=== PATIENT | female | born 1955 | race African-American/Black ===

== ENCOUNTER 2020-05-26 22:20 | Emergency (ER) | payer MEDICARE, OTHER | END 2020-05-27 04:35 | disposition home or self-care (01) | LOC: FER 22:20 | DX: S83.91XA Sprain of unspecified site of right knee, initial encounter (principal); M25.511 Pain in right shoulder; M54.2 Cervicalgia; I10 Essential (primary) hypertension; E11.9 Type 2 diabetes mellitus without complications; Z79.4 Long term (current) use of insulin; Z79.82 Long term (current) use of aspirin; Z79.899 Other long term (current) drug therapy; Z88.5 Allergy status to narcotic agent; Z91.040 Latex allergy status; W19.XXXA Unspecified fall, initial encounter | CPT/HCPCS: 72125; 73030; 73564; 96372; J1170; J2405 ==

== ENCOUNTER 2020-09-25 15:16 | Emergency (ER) | payer MEDICARE, OTHER ==
[2020-09-25 16:46] LABS: BASOPHIL 0.4 % (0-2); EOSINOPHIL 2.1 % (0-7); HCT 33.6 % (37.0-47.0); HGB 10.6 g/dl (12.5-16.0); LYMPHOCYTE 30.5 % (15-48); MCHC 31.5 g/dL (32.0-36.0); MCV 85.5 fL (78.0-100.0); MONOCYTE 17.5 % (0-12); MPV 11.1 fL (6.0-9.5); NEUTROPHIL 47.2 % (41-80); NRBC 0; PLT 202 K/uL (150-400); RBC 3.93 M/uL (4.20-5.40); RDW 14.8 % (11.5-14.0); WBC 5.6 K/uL (4.0-10.5)
[2020-09-25 17:06] LABS: BUN/CREAT RATIO (CALC) 11.1 RATIO; CREATININE 1.08 mg/dL (0.51-0.95); POTASSIUM 4.5 mmol/L (3.5-5.1)
== END 2020-09-25 17:52 | disposition home or self-care (01) ==
LOC: FER 15:16
PROVIDERS: Nurse Practitioner Family
DX: T81.31XA Disruption of external operation (surgical) wound, not elsewhere classified, initial encounter (principal); E11.9 Type 2 diabetes mellitus without complications; I10 Essential (primary) hypertension; Z88.5 Allergy status to narcotic agent; Z79.84 Long term (current) use of oral hypoglycemic drugs; Z91.040 Latex allergy status; Y83.9 Surgical procedure, unspecified as the cause of abnormal reaction of the patient, or of later complication, without mention of misadventure at the time of the procedure
CPT/HCPCS: 36415; 80048; 85025; 99283; J0696